=== PATIENT | female | born 1955 | race Caucasian/White ===

== ENCOUNTER → 2021-02-08 12:01 | Outpatient (CLI) | payer MEDICARE, OTHER, SELFPAY ==
--- NOTE | 2021-02-08 12:09 | DI.RAD.S_ITS ---
PROCEDURE: XR SHOULDER RT MIN 2V INDICATIONS: Right shoulder pain TECHNIQUE: 3 views of the shoulder were acquired. COMPARISON: None. FINDINGS: Bones: No fractures or dislocations. No suspicious bony lesions. AC joint hypertrophy with a prominent downgoing component. Mild glenohumeral joint degenerative arthritis. Visualized ribs appear intact. Soft tissues: No suspicious soft tissue calcifications. IMPRESSION: AC joint hypertrophy with a prominent downward going component. Mild glenohumeral joint degenerative arthritis. No evidence acute bony abnormality of the right shoulder. If clinical suspicion and/or symptoms persist, further assessment with repeat plain films, or advanced imaging (e.g., CT, MRI, or bone scan) may be helpful for further assessment. Dictated by: Toni Mehta M.D. on 02/08/2021 at 14:06 Approved by: Toni Mehta M.D. on 02/08/2021 at 14:07
--- NOTE | 2021-02-08 12:09 | DI.RAD.S_ITS ---
PROCEDURE: XR KNEE LT 3V INDICATIONS: Left knee pain TECHNIQUE: 3 views of the knee were acquired. COMPARISON: None. FINDINGS: Bones: No acute fractures or dislocations. No suspicious bony lesions. There is severe joint space narrowing of the medial femorotibial compartment with subchondral sclerosis and marginal osteophyte formation. Moderate joint space narrowing is seen in the lateral compartment and the anterior compartment joint space is maintained. Tricompartmental marginal osteophytes are present. Soft tissues: Moderate joint effusion. No suspicious soft tissue calcifications. 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 Moderate joint effusion. Dictated by: Donell Evans M.D. on 02/08/2021 at 14:34 Approved by: Donell Evans M.D. on 02/08/2021 at 14:35
[2021-02-08 14:15] LABS: BUN Creatinine Ratio 28.2 (6-22); Blood Urea Nitrogen 22 mg/dL (7-17); Calcium 9.9 mg/dL (8.4-10.2); Carbon Dioxide 27 mmol/L (22-32); Chloride 94 mmol/L (98-107); Cholesterol 276 mg/dL (140-199); Estimated Glomerular Filt Rate > 60.0 mL/min (>60); Glucose 66 mg/dL (80-110); HDL Cholesterol 69 mg/dL (40-60); HEMOLYSIS < 15 (0-50); LDL Cholesterol Calculated 194 mg/dL (<100); Potassium 4.2 mmol/L (3.4-5.1); Sodium 129 mmol/L (137-145); Triglycerides 67 mg/dL (35-150)
== END ==
PROVIDERS: PCP Student in an Organized Health Care Education/Training Program; Referring Provider Student in an Organized Health Care Education/Training Program; Visit Provider Student in an Organized Health Care Education/Training Program
DX: M25.511 Pain in right shoulder (principal); M19.011 Primary osteoarthritis, right shoulder; M25.562 Pain in left knee; M17.12 Unilateral primary osteoarthritis, left knee; M25.462 Effusion, left knee; I10 Essential (primary) hypertension; Z13.220 Encounter for screening for lipoid disorders
CPT/HCPCS: 36415; 73030; 73562; 80048; 80061

== ENCOUNTER → 2021-02-13 11:32 | Outpatient (CLI) | payer MEDICARE, OTHER, SELFPAY | PROVIDERS: PCP Student in an Organized Health Care Education/Training Program; Referring Provider Student in an Organized Health Care Education/Training Program; Visit Provider Student in an Organized Health Care Education/Training Program | DX: Z78.0 Asymptomatic menopausal state (principal); Z90.722 Acquired absence of ovaries, bilateral | CPT/HCPCS: 77080; 77081 ==

== ENCOUNTER → 2021-03-29 13:02 | Outpatient (CLI) | payer MEDICARE, OTHER, SELFPAY ==
[2021-03-29 14:04] LABS: Add Manual Diff / Slide Review NO; Basophils Absolute Auto 0 /uL (0-100); Basophils Percent Auto 1.2 % (0-2); Eosinophils Absolute Auto 100 /uL (0-450); Eosinophils Percent Auto 2.8 % (2-4); Hematocrit 39.9 % (36-46); Hemoglobin 13.3 g/dL (12.0-16.0); Lymphocytes Absolute Auto 1400 /uL (1100-4500); Lymphocytes Percent Auto 34.3 % (25-40); Mean Corpuscular HGB Conc 33.5 % (30-36); Mean Corpuscular Volume 95.6 fL (80-100); Monocytes Absolute Auto 300 /uL (0-900); Monocytes Percent Auto 6.7 % (3-14); Neutrophils Absolute Auto 2200 /uL (1500-7000); Platelet Count 343 X10^3/uL (150-400); Red Blood Cell Count 4.17 X10^6/uL (4.0-5.2); Red Cell Distribution Width 13.6 % (11.6-14.8)
[2021-03-29 14:05] LABS: Appearance Urine UA CLEAR; Bilirubin Urine UA NEGATIVE (NEGATIVE); Color Urine UA YELLOW; Glucose Urine UA NEGATIVE (Negative); Ketones Urine UA NEGATIVE (NEGATIVE); Leukocyte Esterase Urine UA NEGATIVE (NEGATIVE); Nitrite Urine UA NEGATIVE (Negative); Occult Blood Urine UA NEGATIVE (Negative); Protein Urine UA NEGATIVE (Negative); Urobilinogen Urine UA 0.2 E.U./dL (0.2)
[2021-03-29 14:14] LABS: Hemoglobin A1C% w Est Avg Glu 4.8 % (4.0-6.0)
[2021-03-29 14:24] LABS: BUN Creatinine Ratio 28.1 (6-22); Blood Urea Nitrogen 25 mg/dL (7-17); Calcium 9.6 mg/dL (8.4-10.2); Carbon Dioxide 30 mmol/L (22-32); Chloride 94 mmol/L (98-107); Estimated Glomerular Filt Rate > 60.0 mL/min (>60); Glucose 80 mg/dL (80-110); HEMOLYSIS < 15 (0-50); Potassium 4.5 mmol/L (3.4-5.1); Sodium 129 mmol/L (137-145)
[2021-03-29 14:37] LABS: Bacteria Urine None Seen; Culture Indicated Urine Cult Not Indicated; RBC Urine 0-1/HPF (0-5/HPF); Squamous Epithelial Cell Urine 0-1 /HPF (0-5/HPF); WBC Urine 0-1/HPF (0-5/HPF)
== END ==
PROVIDERS: PCP Student in an Organized Health Care Education/Training Program; Referring Provider Orthopaedic Surgery; Visit Provider Orthopaedic Surgery
DX: R73.9 Hyperglycemia, unspecified (principal); Z01.818 Encounter for other preprocedural examination; Z01.812 Encounter for preprocedural laboratory examination; N39.0 Urinary tract infection, site not specified
CPT/HCPCS: 36415; 80048; 81001; 83036; 85025; 93005; 93010

== ENCOUNTER → 2021-04-03 17:32 | Outpatient (CLI) | payer MEDICARE, OTHER, SELFPAY ==
--- NOTE | 2021-04-03 17:34 | DI.MG.S_ITS ---
BILATERAL DIGITAL SCREENING MAMMOGRAM 3D/2D WITH CAD: 04/03/2021 Comparison is made to exams dated: 04/01/2019 mammogram, 07/03/2017 mammogram, and 09/12/2015 mammogram - outside. The tissue of both breasts is predominantly fatty. Current study was also evaluated with a Computer Aided Detection (CAD) system. There are benign calcifications in both breasts. No significant masses, calcifications, or other findings are seen in either breast. There has been no significant interval change. IMPRESSION: BENIGN There is no mammographic evidence of malignancy. A 1 year screening mammogram is recommended. This exam was interpreted at Station ID: [id number]. NOTE: For mammograms, a report in lay terms will be sent to the patient. Approximately 15% of breast malignancies will not be visualized mammographically. In the management of a palpable breast mass, a negative mammogram must not discourage biopsy of a clinically suspicious lesion. Electronically Signed By: Brennon Elizabeth acr/kath:04/04/2021 08:19:21 letter sent: Normal Exam ACR BI-RADS Category 2: Benign Finding(s) 3342F
== END ==
PROVIDERS: PCP Student in an Organized Health Care Education/Training Program; Referring Provider Student in an Organized Health Care Education/Training Program; Visit Provider Student in an Organized Health Care Education/Training Program
DX: Z12.31 Encounter for screening mammogram for malignant neoplasm of breast (principal)
CPT/HCPCS: 77063; 77067

== ENCOUNTER → 2021-05-02 10:19 | Outpatient (CLI) | payer MEDICARE, OTHER, SELFPAY ==
[2021-05-02 14:14] LABS: COVID19 -Nasal RAPID Negative (Negative)
== END ==
PROVIDERS: PCP Student in an Organized Health Care Education/Training Program; Visit Provider Surgery
DX: Z01.812 Encounter for preprocedural laboratory examination (principal); Z20.822 Contact with and (suspected) exposure to COVID-19
CPT/HCPCS: 87635; C9803

== ENCOUNTER 2021-05-03 06:36 | Day surgery (SDC) | payer MEDICARE, OTHER, SELFPAY ==
[2021-05-03 07:06] VITALS: BP 92/68; PULSE 86; RESP 14; TEMP 36.7; O2SAT 100; BMI 30.7
--- NOTE | 2021-05-03 08:48 | PM.PREOP ---
Pre-operative Note COVID-19 COVID-19 status: Negative Interval Note History & Physical reviewed/Exam performed by Physician: Yes Changes to H&P: No ASA Class (for procedural sedation): II
--- NOTE | 2021-05-03 08:55 | PM.HP.1 ---
History of Present Illness History of Present Illness Date Patient Seen: 05/03/21 Chief complaint: SDC Narrative: The patient is a 66 year old woman who is due for colonoscopy for colon cancer screening. She has no specific complaints. She had no problems with the prep. Patient History Medical History (Updated 05/03/21 @ 08:58 by Jere Ruiz MD) Allergies Ankle pain (~2011) Chicken pox (~1957) Fractures (~2007) Measles Mumps Osteoarthritis Sleep apnea (~1999) Surgical History (Updated 04/18/21 @ 20:45 by Ita Pascual) Anesthesia History of ankle surgery (~2014) History of cholecystectomy (~2006) History of foot surgery (~2007) History of hernia repair (~2011) History of hysterectomy (~2006) History of left hip replacement (~2016) History of right hip replacement (~2019) Family & Social History Family History (Updated 04/18/21 @ 20:48 by Ita Pascual) Father Prostate cancer History of heart disease Mother Cancer Hypertension Bleeding ulcer Grandfather Stroke Grandfather Cirrhosis Grandmother History of heart disease Social History: household members spouse Tobacco & Substance use: Smoking Status Never smoker alcohol intake current alcohol intake frequency a few times a month Substance Use Type does not use Meds Home Medications and Allergies Home Medications Medication Instructions Recorded Confirmed Type lisinopril 40 mg tablet 40 mg PO DAILY #90 tab 02/08/21 04/19/21 Rx triamterene 75 1 tab PO DAILY #90 tab 02/08/21 05/03/21 Rx mg-hydrochlorothiazide 50 mg tablet valacyclovir 1 gram tablet 1,000 mg PO DAILY tab 02/08/21 05/03/21 History Allergies Allergy/AdvReac Type Severity Reaction Status Date / Time No Known Drug Allergies Allergy Verified 05/03/21 07:13 Exam Vital Signs (past 8 hours): - 05/03/21 07:06 Temperature 98.1 F Pulse Rate 86 Respiratory Rate 14 Blood Pressure 92/68 Pulse Oximetry 100 Oxygen Delivery Method Room Air Narrative Exam Narrative: No acute distress Abdomen soft, nontender Neuro General: patient alert, patient awake and patient oriented x3 Assessment & Plan Assessment and plan (1) Colon cancer screening: Status: Acute Plan: Risks and benefits of colonoscopy reviewed. She would like to proceed. Time Spent With Patient Critical Care time: I spent a total of [] minutes of critical care time on this patient's care today; this time is exclusive of procedural time.
[2021-05-03] MEDS: MIDAZOLAM 5 MG/5 ML VIAL IV (09:11)
[2021-05-03] MEDS: fentaNYL 250 MCG/5 ML INJ IV (09:16)
[2021-05-03 09:33] VITALS: BP 90/56; PULSE 86; RESP 15; TEMP 36; O2SAT 99
--- NOTE | 2021-05-03 09:34 | PM.OP.COLON ---
Operative Date/Time/Diagnoses Date of procedure: 05/03/21 Pre-op diagnosis: Colon cancer screening Post-op diagnosis: same Procedure & Clinicians Surgeon: Jere Ruiz Procedure Notes SCOAP/Timeout: Performed Procedure in detail: Impression: The patient was brought to the endoscopy suite, placed in left lateral decubitus position. The patient was connected to monitoring devices. A time-out was performed. Sedation was administered. Once the patient was adequately sedated, a digital rectal exam was performed and was normal. The scope was then inserted and advanced to the cecum where the appendiceal orifice was identified and photographed. The scope was then slowly withdrawn over greater than 6 minutes. Mucosa was thoroughly inspected. There were no polyps or masses noted. There were scattered diverticula mostly in the sigmoid colon. The scope was retroflexed in the rectum. There were no abnormalities noted. The was straightened and removed. The patient was awakened and brought to recovery. EBL: 0 The she will be instructed to repeat her colon cancer screening colonoscopy at 10 years. Scope withdrawal time: 10 minutes Sedation minutes: 27 Findings: divertiulosis Specimen(s): none sent Complications: none Post-procedure Recommendations: Colonoscopy in 10 years and High fiber diet Follow up: as needed Disposition: PACU
[2021-05-03 09:38] VITALS: BP 90/62; PULSE 81; RESP 15; O2SAT 98
[2021-05-03 09:43] VITALS: BP 104/59; PULSE 76; RESP 21; O2SAT 100
[2021-05-03 09:48] VITALS: BP 90/49; PULSE 75; RESP 15; TEMP 36; O2SAT 100
[2021-05-03 09:54] VITALS: BP 98/61; PULSE 65; RESP 12; TEMP 35.9; O2SAT 100
== END 2021-05-03 10:05 | disposition home or self-care (01) ==
PROVIDERS: PCP Student in an Organized Health Care Education/Training Program; Referring Provider Surgery; Visit Provider Surgery
PROC: 0DJD8ZZ Inspection of Lower Intestinal Tract, Via Natural or Artificial Opening Endoscopic (ICD-10-PCS; CPT 45378; principal; 2021-05-03 07:45)
DX: Z12.11 Encounter for screening for malignant neoplasm of colon (principal); K57.30 Diverticulosis of large intestine without perforation or abscess without bleeding
CPT/HCPCS: G0121; 99152; 99153; J2250; J3010

== ENCOUNTER → 2022-05-27 16:07 | Outpatient (CLI) | payer MEDICARE, OTHER, SELFPAY ==
[2022-05-27 17:00] LABS: BUN Creatinine Ratio 31.9 (6-22); Blood Urea Nitrogen 29 mg/dL (7-17); Carbon Dioxide 27 mmol/L (22-32); Chloride 94 mmol/L (98-107); Cholesterol 243 mg/dL (140-199); Estimated Glomerular Filt Rate > 60 mL/min (>60); Glucose 107 mg/dL (80-110); HDL Cholesterol 51 mg/dL (40-60); HEMOLYSIS 16 (0-50); LDL Cholesterol Calculated 152 mg/dL (<100); Potassium 3.9 mmol/L (3.4-5.1); Sodium 130 mmol/L (137-145); Triglycerides 200 mg/dL (35-150)
== END ==
PROVIDERS: PCP Student in an Organized Health Care Education/Training Program; Referring Provider Student in an Organized Health Care Education/Training Program; Visit Provider Student in an Organized Health Care Education/Training Program
DX: E78.2 Mixed hyperlipidemia (principal); I10 Essential (primary) hypertension
CPT/HCPCS: 36415; 80048; 80061

== ENCOUNTER → 2023-07-30 10:33 | Outpatient (CLI) | payer MEDICARE, OTHER, SELFPAY ==
[2023-07-30 11:42] LABS: Urine Volume 10mL (spun)
[2023-07-30 11:58] LABS: Add Manual Diff / Slide Review NO; Basophils Absolute Auto 0 /uL (0-100); Basophils Percent Auto 0.8 % (0-2); Eosinophils Absolute Auto 0 /uL (0-450); Eosinophils Percent Auto 0.7 % (2-4); Hematocrit 37.4 % (36-46); Hemoglobin 12.8 g/dL (12.0-16.0); Lymphocytes Absolute Auto 800 /uL (1100-4500); Mean Corpuscular HGB Conc 34.4 % (30-36); Mean Corpuscular Volume 93.2 fL (80-100); Monocytes Absolute Auto 300 /uL (0-900); Monocytes Percent Auto 7.2 % (3-14); Neutrophils Absolute Auto 2800 /uL (1500-7000); Neutrophils Percent Auto 70.3 % (50-75); Platelet Count 340 X10^3/uL (150-400); Red Blood Cell Count 4.01 X10^6/uL (4.0-5.2); Red Cell Distribution Width 14.1 % (11.6-14.8); White Blood Cell Count 3.9 X10^3/uL (4.5-11.0)
[2023-07-30 12:07] LABS: Appearance Urine UA CLEAR; Bilirubin Urine UA NEGATIVE (NEGATIVE); Color Urine UA YELLOW; Glucose Urine UA NEGATIVE (Negative); Ketones Urine UA 1+ (NEGATIVE); Leukocyte Esterase Urine UA NEGATIVE (NEGATIVE); Nitrite Urine UA NEGATIVE (Negative); Occult Blood Urine UA NEGATIVE (Negative); Protein Urine UA NEGATIVE (Negative); Urobilinogen Urine UA 0.2 E.U./dL (0.2)
[2023-07-30 12:17] LABS: Alanine Aminotransferase 57 IU/L (<35); Albumin 4.3 g/dL (3.5-5.0); Albumin Globulin Ratio 1.4 (1.0-2.8); Alkaline Phosphatase 74 U/L (38-126); Aspartate Aminotransferase 44 IU/L (14-36); BUN Creatinine Ratio 28.6 (6-22); Bilirubin Total 0.6 mg/dL (0.2-1.3); Blood Urea Nitrogen 24 mg/dL (7-17); Carbon Dioxide 24 mmol/L (22-32); Chloride 92 mmol/L (98-107); Cholesterol 259 mg/dL (140-199); Estimated Glomerular Filt Rate > 60 mL/min (>60); Globulin 3.1 g/dL (1.7-4.1); Glucose 87 mg/dL (80-110); HDL Cholesterol 52 mg/dL (40-60); HEMOLYSIS < 15 (0-50); LDL Cholesterol Calculated 189 mg/dL (<100); Potassium 4.3 mmol/L (3.4-5.1); Sodium 128 mmol/L (137-145); Total Protein 7.4 g/dL (6.3-8.2); Triglycerides 90 mg/dL (35-150)
[2023-07-30 12:22] LABS: Creatinine Urine Random 43.3 mg/dL
[2023-07-30 12:24] LABS: Hemoglobin A1C% w Est Avg Glu 4.9 % (4.0-6.0)
[2023-07-30 12:29] LABS: Microalbumin Urine Random < 0.6 mg/dL (0-1.6)
[2023-07-30 12:44] LABS: Free T3, Triiodothyronine Free 2.83 pg/mL (2.77-5.27); Free T4, Direct Thyroxine 1.58 ng/dL (0.78-2.19)
[2023-07-30 12:57] LABS: Thyroid Stimulating Hormone 0.342 uIU/mL (0.47-4.68)
[2023-07-30 18:41] LABS: Bacteria Urine None Seen; Culture Indicated Urine Cult Not Indicated; RBC Urine None Seen (0-5/HPF); Squamous Epithelial Cell Urine 0-1 /HPF (0-5/HPF); WBC Urine None Seen (0-5/HPF)
[2023-07-31 17:43] LABS: Hep C Virus Ab w/Reflex Quant NEGATIVE s/c (NEGATIVE)
== END ==
PROVIDERS: PCP Nurse Practitioner; Referring Provider Orthopaedic Surgery; Visit Provider Orthopaedic Surgery
DX: I10 Essential (primary) hypertension (principal); R73.9 Hyperglycemia, unspecified; Z01.818 Encounter for other preprocedural examination; Z11.59 Encounter for screening for other viral diseases; E78.2 Mixed hyperlipidemia; Z01.812 Encounter for preprocedural laboratory examination
CPT/HCPCS: 36415; 80053; 80061; 81001; 82043; 82570; 83036; 84439; 84443; 84481; 85025; 86803; 93005

== ENCOUNTER → 2023-09-03 13:52 | Outpatient (CLI) | payer MEDICARE, OTHER, SELFPAY ==
--- NOTE | 2023-09-03 13:52 | DI.MG.S_ITS ---
BILATERAL DIGITAL SCREENING MAMMOGRAM 3D/2D WITH CAD: 09/03/2023 CLINICAL: Routine screening. Comparison is made to exams dated: 04/03/2021 mammogram - [facility], 04/01/2019 mammogram, and 07/03/2017 mammogram - outside. Both breasts are heterogeneously dense, which may obscure small masses (category c / 51-75% glandular tissue). Current study was also evaluated with a Computer Aided Detection (CAD) system. There are benign calcifications in both breasts. No significant masses, calcifications, or other findings are seen in either breast. There has been no significant interval change. IMPRESSION: BENIGN There is no mammographic evidence of malignancy. A 1 year screening mammogram is recommended. Based on the Tyrer Cuzick model (a risk assessment model) the patient's lifetime risk is 8.3% and her 10 year risk is 4.9%. According to the ACR, ACS, and NCCN guidelines, an annual breast MRI exam along with mammogram is recommended if the patient's lifetime risk is 20% or greater. This exam was interpreted at Station ID: [id number]. NOTE: For mammograms, a report in lay terms will be sent to the patient. Approximately 15% of breast malignancies will not be visualized mammographically. In the management of a palpable breast mass, a negative mammogram must not discourage biopsy of a clinically suspicious lesion. Electronically Signed By: Nelly aquino/kath:09/03/2023 15:26:41 letter sent: Normal Exam ACR BI-RADS Category 2: Benign Finding(s) 3342F
== END ==
PROVIDERS: PCP Nurse Practitioner; Referring Provider Nurse Practitioner; Visit Provider Nurse Practitioner
DX: Z12.31 Encounter for screening mammogram for malignant neoplasm of breast (principal); R92.333 Mammographic heterogeneous density, bilateral breasts
CPT/HCPCS: 77063; 77067

== ENCOUNTER → 2024-04-16 14:01 | Outpatient (CLI) | payer MEDICARE, OTHER, SELFPAY ==
[2024-04-16 17:06] LABS: Cholesterol 143 mg/dL (140-199); HDL Cholesterol 60 mg/dL (40-60); LDL Cholesterol Calculated 59 mg/dL (<100); Triglycerides 119 mg/dL (35-150)
== END ==
PROVIDERS: PCP Nurse Practitioner Family; Referring Provider Nurse Practitioner Family; Visit Provider Nurse Practitioner Family
DX: E78.5 Hyperlipidemia, unspecified (principal)
CPT/HCPCS: 80061

== ENCOUNTER → 2024-07-13 14:22 | Outpatient (CLI) | payer MEDICARE, OTHER, SELFPAY | PROVIDERS: PCP Nurse Practitioner Family; Visit Provider Physician Assistant Surgical | DX: R30.0 Dysuria (principal) | CPT/HCPCS: 87077; 87086 ==

== ENCOUNTER → 2024-08-13 12:37 | Outpatient (CLI) | payer MEDICARE, OTHER, SELFPAY | PROVIDERS: PCP Nurse Practitioner Family; Visit Provider Nurse Practitioner Family | DX: R30.0 Dysuria (principal) | CPT/HCPCS: 87086 ==

== ENCOUNTER → 2024-08-17 10:52 | Outpatient (CLI) | payer MEDICARE, OTHER, SELFPAY ==
[2024-08-17 11:35] LABS: Add Manual Diff / Slide Review NO; Basophils Absolute Auto 100 /uL (0-100); Basophils Percent Auto 1.6 % (0-2); Eosinophils Absolute Auto 100 /uL (0-450); Eosinophils Percent Auto 4.1 % (2-4); Hematocrit 43.2 % (36-46); Hemoglobin 14.6 g/dL (12.0-16.0); Lymphocytes Absolute Auto 800 /uL (1100-4500); Lymphocytes Percent Auto 22.6 % (25-40); Mean Corpuscular HGB Conc 33.7 % (30-36); Mean Corpuscular Hemoglobin 32.5 PG (26-34); Mean Corpuscular Volume 96.4 fL (80-100); Monocytes Absolute Auto 300 /uL (0-900); Monocytes Percent Auto 8.3 % (3-14); Neutrophils Absolute Auto 2200 /uL (1500-7000); Neutrophils Percent Auto 63.4 % (50-75); Platelet Count 413 X10^3/uL (150-400); Red Blood Cell Count 4.48 X10^6/uL (4.0-5.2); Red Cell Distribution Width 13.7 % (11.6-14.8); White Blood Cell Count 3.4 X10^3/uL (4.5-11.0)
[2024-08-17 11:57] LABS: Alanine Aminotransferase 193 IU/L (<35); Albumin 4.5 g/dL (3.5-5.0); Albumin Globulin Ratio 1.5 (1.0-2.8); Alkaline Phosphatase 90 U/L (38-126); Aspartate Aminotransferase 127 IU/L (14-36); BUN Creatinine Ratio 21.4 (6-22); Bilirubin Total 0.8 mg/dL (0.2-1.3); Blood Urea Nitrogen 18 mg/dL (7-17); Calcium 9.7 mg/dL (8.4-10.2); Carbon Dioxide 25 mmol/L (22-32); Chloride 97 mmol/L (98-107); Cholesterol 175 mg/dL (140-199); Estimated Glomerular Filt Rate > 60 mL/min (>60); Globulin 3.1 g/dL (1.7-4.1); Glucose 86 mg/dL (80-110); HDL Cholesterol 50 mg/dL (40-60); HEMOLYSIS < 15 (0-50); LDL Cholesterol Calculated 108 mg/dL (<100); Sodium 130 mmol/L (137-145); Total Protein 7.6 g/dL (6.3-8.2); Triglycerides 85 mg/dL (35-150)
== END ==
PROVIDERS: PCP Nurse Practitioner Family; Referring Provider Nurse Practitioner Family; Visit Provider Nurse Practitioner Family
DX: I10 Essential (primary) hypertension (principal); R31.9 Hematuria, unspecified; E78.2 Mixed hyperlipidemia; E03.9 Hypothyroidism, unspecified
CPT/HCPCS: 36415; 80053; 80061; 84443; 85025

== ENCOUNTER → 2024-08-27 12:41 | Outpatient (CLI) | payer MEDICARE, OTHER, SELFPAY ==
[2024-08-27 13:25] LABS: Appearance Urine UA CLEAR; Bilirubin Urine UA NEGATIVE (NEGATIVE); Color Urine UA YELLOW; Glucose Urine UA NEGATIVE (Negative); Ketones Urine UA NEGATIVE (NEGATIVE); Leukocyte Esterase Urine UA NEGATIVE (NEGATIVE); Nitrite Urine UA NEGATIVE (Negative); Occult Blood Urine UA NEGATIVE (Negative); Protein Urine UA NEGATIVE (Negative); Urobilinogen Urine UA 0.2 E.U./dL (0.2)
[2024-08-27 13:36] LABS: Creatinine Urine Random 97.09 mg/dL
[2024-08-27 13:43] LABS: Microalbumin Urine Random 0.7 mg/dL (0-1.6)
== END ==
PROVIDERS: PCP Nurse Practitioner Family; Referring Provider Nurse Practitioner Family; Visit Provider Nurse Practitioner Family
DX: I10 Essential (primary) hypertension (principal); R31.9 Hematuria, unspecified; E78.2 Mixed hyperlipidemia; E03.9 Hypothyroidism, unspecified; N39.0 Urinary tract infection, site not specified
CPT/HCPCS: 81003; 82043; 82570

== ENCOUNTER 2025-04-11 17:18 | Emergency (ER) | payer MEDICARE, OTHER, SELFPAY ==
[2025-04-11] VITALS (31 sets, daily range): BP systolic 91–132; BP diastolic 51–76; PULSE 75–91; RESP 16–34; TEMP 36.6–36.9; O2SAT 92–100; BMI 25.7
--- NOTE | 2025-04-11 | DI.RAD.S_ITS ---
PROCEDURE: XR HIP LT 1V INDICATIONS: POST REDUCTION TECHNIQUE: 1 views of the hip were acquired. COMPARISON: [facility], CR, XR HIP W PEL LT 2V, 04/11/2025, 17:50. FINDINGS: See impression IMPRESSION: Interval reduction of the left total hip arthroplasty. No periprosthetic fracture. Dictated by: Alexis Gaxiola M.D. on 04/11/2025 at 20:42 Approved by: Alexis Gaxiola M.D. on 04/11/2025 at 20:43
--- NOTE | 2025-04-11 17:24 | DI.RAD.S_ITS ---
PROCEDURE: XR HIP W PEL IF DONE LT 2V INDICATIONS: left hip popped out, fell to ground. Hx of replacement TECHNIQUE: AP pelvis with lateral view(s) of the left hip(s). COMPARISON: None. FINDINGS: Bones: There is bilateral total hip arthroplasty. There is superior and slightly anterior dislocation of the left femoral component. There is moderate osteopenia. No definite focal osseous lesion. Soft tissues: The visualized bowel gas pattern is normal. No suspicious soft tissue calcifications. IMPRESSION: Dislocation of the femoral component of left total hip arthroplasty. Dictated by: Brayan Novak M.D. on 04/11/2025 at 18:36 Approved by: Brayan Novak M.D. on 04/11/2025 at 18:38
--- NOTE | 2025-04-11 17:29 | ED.LOWEXIN ---
HPI - Extremity Injury (Lower) General Chief Complaint: Extremity Injury, Lower Stated Complaint: Left hip dislocation Time Seen by Provider: 04/11/25 17:29 Source: EMS Mode of arrival: EMS History of Present Illness HPI Narrative: 69-year-old female history of hypertension, dyslipidemia, obesity, HSV, had hip surgery 2018 presents with hip dislocation via EMS after reaching for something on top of the shelf and felt a pull unable to bear weight and fell down but no no loss of conscious. Patient denies chest pain, dizziness, back pain, neck pain, numbness, tingling, down the legs, bowel or bladder incontinence, shortness of breath. Other than what is stated 14 point review of system is negative. Related Data Previous Rx's ?Medication ?Instructions ?Recorded triamcinolone acetonide 0.025 % 1 applic topical BID #15 grams 04/22/24 topical ointment amoxicillin 500 mg-potassium 1 tab PO BID #14 tabs 08/13/24 clavulanate 125 mg tablet (Augmentin) phenazopyridine 200 mg tablet 200 mg PO TID PRN pain #6 tabs 08/13/24 (Pyridium) amlodipine 10 mg tablet 10 mg PO DAILY #90 tabs 03/09/25 estradiol 10 mcg vaginal tablet See Rx Instructions .Route 03/09/25 (Vagifem) .COMPLEX #36 tabs olmesartan 40 mg tablet 40 mg PO DAILY #90 tabs 03/09/25 rosuvastatin 10 mg tablet 10 mg PO DAILY #90 tabs 03/09/25 tirzepatide (weight loss) 12.5 12.5 mg (0.5 mL) SUBCUT QWEEK #2 mL 03/09/25 mg/0.5 mL subcutaneous pen injector triamterene 37.5 1 cap PO DAILY #90 caps 03/09/25 mg-hydrochlorothiazide 25 mg capsule valacyclovir 1 gram tablet 1,000 mg PO DAILY #90 tabs 03/09/25 hydrocodone 5 mg-acetaminophen 325 1 tab PO Q4-6H PRN pain #20 tabs 04/11/25 mg tablet Allergies Allergy/AdvReac Type Severity Reaction Status Date / Time No Known Drug Allergies Allergy Verified 04/11/25 17:24 Review of Systems Review of Systems ROS Unobtainable: All systems reviewed & are unremarkable except as noted in HPI and below Patient History Medical History Dyspareunia Elevated coronary artery calcium score HLD (hyperlipidemia) Class 2 obesity Environmental and seasonal allergies Osteoarthritis Sleep apnea (~1999) Fractures (~2007) Ankle pain (~2011) Mumps Measles Chicken pox (~1957) Retinal vein occlusion (~2020) Surgical History History of arthroplasty of left knee Anesthesia History of hernia repair (~2011) History of right hip replacement (~2019) History of left hip replacement (~2016) History of ankle surgery (~2014) History of hysterectomy (~2006) History of cholecystectomy (~2006) History of foot surgery (~2007) Family History Father Prostate cancer History of heart disease Mother Cancer Hypertension Bleeding ulcer Grandfather Stroke Grandfather Cirrhosis Grandmother History of heart disease Social History household members: spouse alcohol intake: current alcohol intake frequency: a few times a month Exam Narrative Exam Narrative: GENERAL: [69] year old patient appears stated age. Well-developed patient, in mild distress. HEAD: Atraumatic. Normocephalic. EYES: Pupils equal round and reactive. Extraocular motions intact. No scleral icterus. No injection or drainage. ENT: Nose without bleeding, purulent drainage. Throat without erythema, tonsillar hypertrophy or exudate. Airway patent. NECK: Trachea midline. Non tender CARDIOVASCULAR: Regular rate and rhythm without murmurs, gallops, or rubs. RESPIRATORY: Clear to auscultation. Breath sounds equal bilaterally. No wheezes, rales, or rhonchi. GASTROINTESTINAL: Abdomen soft, non-tender, nondistended. EXTREMITIES: No edema or joint tenderness. BACK: Nontender without deformity or crepitance. No flank tenderness. NEURO: AOx3. SKIN: No rash or erythema of visible areas Initial Vital Signs Initial Vital Signs: Vital Signs Pulse Rate 88 04/11/25 17:21 Respiratory Rate 16 04/11/25 17:21 Blood Pressure 111/64 04/11/25 17:21 Pulse Oximetry 98 04/11/25 17:21 Oxygen Delivery Method Room Air 04/11/25 17:21 Course Orders Ordered: ED Orders 04/11/25 17:24 XR hip w pel LT 2V Stat 04/11/25 20:38 CT pelvis wo con Stat Discontinued Medications Hydromorphone HCl (Hydromorphone 1 Mg/Ml Syringe) 1 mg IV NOW ONE Stop: 04/11/25 17:38 Last Admin: 04/11/25 17:44 Dose: 1 mg Documented By: COLLETTE Ketorolac Tromethamine (Ketorolac 30 Mg/Ml Vial) 15 mg IV NOW ONE Stop: 04/11/25 17:38 Last Admin: 04/11/25 17:43 Dose: 15 mg Documented By: COLLETTE Ondansetron HCl (Ondansetron 4 Mg/2 Ml Inj) 4 mg IV NOW ONE Stop: 04/11/25 17:38 Last Admin: 04/11/25 17:43 Dose: 4 mg Documented By: COLLETTE Propofol (Propofol 200 Mg/20 Ml Vial) 100 mg IV NOW ONE Stop: 04/11/25 19:05 Last Admin: 04/11/25 19:56 Dose: Not Given Propofol (Propofol 200 Mg/20 Ml Vial) 150 mg IV NOW ONE Stop: 04/11/25 19:24 Last Admin: 04/11/25 19:23 Dose: 150 mg Propofol (Propofol 200 Mg/20 Ml Vial) 100 mg IV NOW ONE Stop: 04/11/25 19:52 Last Admin: 04/11/25 20:44 Dose: Not Given Propofol (Propofol 200 Mg/20 Ml Vial) 80 mg IV NOW ONE Stop: 04/11/25 20:42 Last Admin: 04/11/25 20:13 Dose: 80 mg Vital Signs Vital signs: Vital Signs - 8 hr 04/11/25 17:21 04/11/25 17:32 04/11/25 18:00 Temperature Pulse Rate 88 87 Respiratory Rate 16 25 H Blood Pressure 111/64 106/64 Pulse Oximetry 98 100 Oxygen Delivery Method Room Air 04/11/25 18:00 04/11/25 18:21 04/11/25 18:21 Temperature Pulse Rate 82 85 Respiratory Rate 24 23 Blood Pressure 119/61 Pulse Oximetry 100 100 Oxygen Delivery Method 04/11/25 18:30 04/11/25 18:30 04/11/25 19:00 Temperature Pulse Rate 81 75 Respiratory Rate 20 20 Blood Pressure 115/68 Pulse Oximetry 99 100 Oxygen Delivery Method 04/11/25 19:00 04/11/25 19:14 04/11/25 19:19 Temperature 98.5 F Pulse Rate 78 77 Respiratory Rate 16 23 Blood Pressure 109/58 L 109/58 L Pulse Oximetry 100 99 Oxygen Delivery Method 04/11/25 19:19 04/11/25 19:20 04/11/25 19:20 Temperature Pulse Rate 79 Respiratory Rate 34 H Blood Pressure 93/55 L 97/55 L Pulse Oximetry 99 Oxygen Delivery Method 04/11/25 19:21 04/11/25 19:21 04/11/25 19:25 Temperature Pulse Rate 81 81 Respiratory Rate 26 H Blood Pressure 109/53 L Pulse Oximetry 99 96 Oxygen Delivery Method 04/11/25 19:25 04/11/25 19:30 04/11/25 19:30 Temperature Pulse Rate 84 Respiratory Rate 21 Blood Pressure 119/76 118/55 L Pulse Oximetry 95 Oxygen Delivery Method 04/11/25 19:35 04/11/25 19:35 04/11/25 19:38 Temperature 98 F Pulse Rate 78 78 Respiratory Rate 17 16 Blood Pressure 91/54 L 95/52 L Pulse Oximetry 95 98 Oxygen Delivery Method 04/11/25 19:39 04/11/25 19:40 04/11/25 19:40 Temperature Pulse Rate 81 81 Respiratory Rate 20 21 Blood Pressure 95/52 L Pulse Oximetry 99 Oxygen Delivery Method 04/11/25 19:45 04/11/25 19:45 04/11/25 19:50 Temperature Pulse Rate 75 75 Respiratory Rate 16 20 Blood Pressure 95/51 L Pulse Oximetry 98 99 Oxygen Delivery Method 04/11/25 19:50 04/11/25 19:55 04/11/25 19:55 Temperature Pulse Rate 78 Respiratory Rate Blood Pressure 101/57 L 105/54 L Pulse Oximetry Oxygen Delivery Method 04/11/25 20:00 04/11/25 20:01 04/11/25 20:01 Temperature Pulse Rate 81 81 Respiratory Rate 24 23 Blood Pressure 128/58 L Pulse Oximetry 92 96 Oxygen Delivery Method 04/11/25 20:05 04/11/25 20:05 04/11/25 20:11 Temperature Pulse Rate 85 85 Respiratory Rate 24 20 Blood Pressure 132/60 Pulse Oximetry 98 99 Oxygen Delivery Method 04/11/25 20:11 04/11/25 20:15 04/11/25 20:15 Temperature Pulse Rate 91 H Respiratory Rate 20 Blood Pressure 132/75 125/73 Pulse Oximetry 94 Oxygen Delivery Method 04/11/25 20:19 04/11/25 20:20 04/11/25 20:21 Temperature 98.0 F Pulse Rate 85 84 Respiratory Rate 21 16 Blood Pressure 125/73 110/54 L Pulse Oximetry 98 Oxygen Delivery Method 04/11/25 20:21 04/11/25 20:26 04/11/25 20:26 Temperature Pulse Rate 83 79 Respiratory Rate 21 22 Blood Pressure 115/53 L Pulse Oximetry 98 99 Oxygen Delivery Method 04/11/25 20:30 04/11/25 20:30 04/11/25 20:35 Temperature Pulse Rate 79 78 Respiratory Rate 23 24 Blood Pressure 105/62 Pulse Oximetry 98 99 Oxygen Delivery Method 04/11/25 20:35 04/11/25 20:40 04/11/25 20:40 Temperature Pulse Rate 77 Respiratory Rate 22 Blood Pressure 102/58 L 109/60 Pulse Oximetry 98 Oxygen Delivery Method MDM - Extremity Injury (Lower) Imaging Data Extremity x-ray #1: Radiologist's Impression: [address] [address] XRay Report Signed Patient: Natalie Pruitt MR#: [id number] : 1955 Acct:[id number] Age/Sex: 69 / F Date of Service: 04/11/25 Loc: ED Accession Number: [id number] Procedure: XR hip w pel LT 2V Ordering Provider: Percy Castellanos D.O. PROCEDURE: XR HIP W PEL IF DONE LT 2V INDICATIONS: left hip popped out, fell to ground. Hx of replacement TECHNIQUE: AP pelvis with lateral view(s) of the left hip(s). COMPARISON: None. FINDINGS: Bones: There is bilateral total hip arthroplasty. There is superior and slightly anterior dislocation of the left femoral component. There is moderate osteopenia. No definite focal osseous lesion. Soft tissues: The visualized bowel gas pattern is normal. No suspicious soft tissue calcifications. IMPRESSION: Dislocation of the femoral component of left total hip arthroplasty. CT scan - abdomen/pelvis: Radiologist's Impression: [address] [address] [address] Scan Report Signed Patient: Natalie Pruitt MR#: [id number] : 1955 Acct:[id number] Age/Sex: 69 / F Date of Service: 04/11/25 Loc: ED Accession Number: [id number] Procedure: CT pelvis wo con Ordering Provider: Percy Castellanos D.O. PROCEDURE: CT PEL WO CON INDICATIONS: Left hip dislocation TECHNIQUE: Noncontrast 3 mm axial sections acquired through the bony pelvis, with coronal and sagittal reformatting. COMPARISON: None. FINDINGS: Image quality: Excellent. Bones: Changes of bilateral total hip arthroplasties. The left femoral head is appropriately seated in the acetabular cup. No displaced liner. Moderate degenerative proliferation of the pubic symphysis. Mild joint space narrowing small peripheral osteophytosis of the bilateral sacroiliac joints. No sacral fracture. No fracture. Mild, grade 1, degenerative anterolisthesis of L4 on L5. Soft tissues: The pelvic viscera is unremarkable. Post hysterectomy. Mild diffuse atrophy and fatty infiltration of the hip girdle musculature, within the expected change for age. No focal soft tissue collection. IMPRESSION: Changes of bilateral total hip prosthesis with reduction of the left femoral component. No periprosthetic fracture. ECG Data Interpretation: NSR HR 91 GA 168 QRS [address]-t wave change MDM Narrative Medical decision making narrative: All lab work, vital signs, nurse triage note, medication list, previous ER visits, and all imaging studies reviewed. X-ray shows dislocation of the femoral component of the left total hip arthroplasty. I attempted reduce the hip reduction multiple times without any success. Dr. Eid was called in to assist and a 2nd moderate procedural sedation completed without any complication. Airway assessed prior to start of procedure? [Y] Procedural Sedation Time of Procedure: [738pm] Consent Signed: [Y] ASA Class: [II] Mallampati Airway Classification: [II] Time Out Performed: [Y] Indication: [L hip dislocation] Preparation: [Y] Bedside and IV Secured: [Y] Fentanyl Dose (mcg): [] IV Propofol Dose (mg): [See procedure sheet] ED Sedation Level: [Moderate] Patient Tolerated Procedure: [Y] Complications: [None] 2nd proceduration sedation note Airway assessed prior to start of procedure? [Y] Procedural Sedation Time of Procedure: [815pm] Consent Signed: [Y] ASA Class: [II] Mallampati Airway Classification: [II] Time Out Performed: [Y] Indication: [L hip dislocation] Preparation: [Y] Bedside and IV Secured: [Y] Fentanyl Dose (mcg): [N] IV Propofol Dose (mg): [See procedure sheet] ED Sedation Level: [Moderate] Patient Tolerated Procedure: [Y} Complications: [None] Patient will follow up with Dr. Eid as outpatient. X-rays CT scan completed today. Differential diagnosis fracture, dislocation, contusion. CT pelvis showed changes of bilateral total hip prosthesis with reduction of the left femoral component no periprosthetic fracture. X-ray showed interval reduction of the left total hip arthroplasty. No periprosthetic fracture. Discharge Plan Departure Patient Disposition: Home Clinical Impression: Dislocation, hip Qualifiers: Encounter type: initial encounter Laterality: left Qualified Code(s): S73.005A - Unspecified dislocation of left hip, initial encounter Instructions: DI for Hip Dislocation -- Adult Activity Restrictions/Additional Instructions: Return with new or worsening symptoms. Follow up with call office for appointment. ? Prescriptions: New hydrocodone-acetaminophen 5-325 mg tablet 1 tab PO Q4-6H PRN (Reason: pain) Qty: 20 0RF No Action phenazopyridine [Pyridium] 200 mg tablet 200 mg PO TID PRN (Reason: pain) Qty: 6 0RF triamcinolone acetonide 0.025 % ointment 1 applic topical BID Qty: 15 0RF amoxicillin-pot clavulanate [Augmentin] 500-125 mg tablet 1 tab PO BID Qty: 14 0RF Rx Instructions: TWICE daily triamterene-hydrochlorothiazid 37.5-25 mg capsule 1 cap PO DAILY Qty: 90 3RF tirzepatide (weight loss) 12.5 mg/0.5 mL pen injector 12.5 mg SUBCUT QWEEK Qty: 2 6RF rosuvastatin 10 mg tablet 10 mg PO DAILY Qty: 90 3RF Rx Instructions: Take 1 tab at bedtime daily, with Vitamin D3. olmesartan 40 mg tablet 40 mg PO DAILY Qty: 90 3RF Rx Instructions: Take 1 tab daily, Goal for BP under 130/80, preferably 120/80 amlodipine 10 mg tablet 10 mg PO DAILY Qty: 90 3RF estradiol [Vagifem] 10 mcg tablet See Rx Instructions .ROUTE .COMPLEX Qty: 36 3RF Rx Instructions: Insert vaginally at bedtime daily x14 days then 2x/week thereafter; valacyclovir 1 gram tablet 1,000 mg PO DAILY Qty: 90 3RF Referrals: Tatyana Holly FNP-JOANNA [Primary Care Provider, Family Practice] Roberto Eid MD [Physician, Orthopedic Surgery] Stand Alone Forms: Patient Portal/API
[2025-04-11] MEDS: KETOROLAC 30 MG/ML VIAL 15 MG IV (17:43)
[2025-04-11] MEDS: ONDANSETRON 4 MG/2 ML INJ IV (17:43)
--- NOTE | 2025-04-11 20:31 | PM.CN.IH.1 ---
History of Present Illness Consult details Narrative: CHIEF COMPLAINT I came in today because my hip dislocated. SUBJECTIVE The patient did not provide additional subjective details in the transcript. SOCIAL HISTORY No social history details were provided in the transcript. PRIOR HIP/KNEE PROCEDURES - Left total hip arthroplasty performed by Dr. Jimmie Avila in 2018, with a Corail stem. - Right total hip arthroplasty performed in [place], [place], after a fracture, with an Accolade stem. - Bilateral total knee arthroplasty performed by Dr. Garcia locally. PHYSICAL EXAM Hip Exam: - Examination: The foot was held in extension and external rotation. The patient was conversant and appropriate. - Neurologic: Intact plantar flexion and dorsiflexion of her hallux and ankle, indicative of an intact sciatic nerve. RADIOLOGY: Images independently reviewed and interpreted: 1. Left Hip ? 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 2. Long Leg Scanogram ? Views performed on 2021-03-28 - Findings: Left total hip arthroplasty with a Corail stem. Right total hip arthroplasty with an Accolade stem. Possible slight limb length discrepancy with the right longer than the left. Prior right total ankle arthroplasty. These films were before either knee replacement. ASSESSMENT The patient presents with an anterior dislocation of the left total hip arthroplasty. PLAN I discussed with the patient the need for follow-up in the clinic to monitor for any recurrent anterior hip dislocations. A CT scan will be obtained to measure the angles of her components. If the patient experiences recurrent hip dislocations, we will consider a revision arthroplasty, potentially involving the placement of a dual mobility implant. - Obtain CT scan to measure component angles. - Follow up in the outpatient setting. - Monitor for recurrent hip dislocations. - Consider revision surgery with dual mobility implant if dislocations recur. PROCEDURES See procedure note FOLLOWUP Follow up in clinic with me. This does not need to be done on an urgent basis. When she does come to clinic I would get the following images: - Low AP Pelvis with marker ball - Cross table lateral left hip - Sitting and standing lateral radiographs of the spine Meds Home Medications and Allergies Home Medications ?Medication ?Instructions ?Recorded ?Confirmed ?Type triamcinolone acetonide 0.025 % 1 applic topical BID #15 grams 04/22/24 03/09/25 Rx topical ointment amoxicillin 500 mg-potassium 1 tab PO BID #14 tabs 02/07/25 09/03/25 Rx clavulanate 125 mg tablet (Augmentin) phenazopyridine 200 mg tablet 200 mg PO TID PRN pain #6 tabs 08/13/24 03/09/25 Rx (Pyridium) amlodipine 10 mg tablet 10 mg PO DAILY #90 tabs 03/09/25 03/09/25 Rx estradiol 10 mcg vaginal tablet See Rx Instructions .Route 03/09/25 03/09/25 Rx (Vagifem) .COMPLEX #36 tabs olmesartan 40 mg tablet 40 mg PO DAILY #90 tabs 03/09/25 03/09/25 Rx rosuvastatin 10 mg tablet 10 mg PO DAILY #90 tabs 03/09/25 03/09/25 Rx tirzepatide (weight loss) 12.5 12.5 mg (0.5 mL) SUBCUT QWEEK #2 mL 03/09/25 03/09/25 Rx mg/0.5 mL subcutaneous pen injector triamterene 37.5 1 cap PO DAILY #90 caps 03/09/25 03/09/25 Rx mg-hydrochlorothiazide 25 mg capsule valacyclovir 1 gram tablet 1,000 mg PO DAILY #90 tabs 03/09/25 03/09/25 Rx Allergies Allergy/AdvReac Type Severity Reaction Status Date / Time No Known Drug Allergies Allergy Verified 04/11/25 17:24 Exam Vital Signs (past 8 hours): - 04/11/25 17:21 04/11/25 17:32 04/11/25 18:00 Temperature Pulse Rate 88 87 Respiratory Rate 16 25 H Blood Pressure 111/64 106/64 Pulse Oximetry 98 100 Oxygen Delivery Method Room Air 04/11/25 18:00 04/11/25 18:21 04/11/25 18:21 Temperature Pulse Rate 82 85 Respiratory Rate 24 23 Blood Pressure 119/61 Pulse Oximetry 100 100 Oxygen Delivery Method 04/11/25 18:30 04/11/25 18:30 04/11/25 19:00 Temperature Pulse Rate 81 75 Respiratory Rate 20 20 Blood Pressure 115/68 Pulse Oximetry 99 100 Oxygen Delivery Method 04/11/25 19:00 04/11/25 19:14 04/11/25 19:19 Temperature 98.5 F Pulse Rate 78 77 Respiratory Rate 16 23 Blood Pressure 109/58 L 109/58 L Pulse Oximetry 100 99 Oxygen Delivery Method 04/11/25 19:19 04/11/25 19:20 04/11/25 19:20 Temperature Pulse Rate 79 Respiratory Rate 34 H Blood Pressure 93/55 L 97/55 L Pulse Oximetry 99 Oxygen Delivery Method 04/11/25 19:21 04/11/25 19:21 04/11/25 19:25 Temperature Pulse Rate 81 81 Respiratory Rate 26 H Blood Pressure 109/53 L Pulse Oximetry 99 96 Oxygen Delivery Method 04/11/25 19:25 04/11/25 19:30 04/11/25 19:30 Temperature Pulse Rate 84 Respiratory Rate 21 Blood Pressure 119/76 118/55 L Pulse Oximetry 95 Oxygen Delivery Method 04/11/25 19:35 04/11/25 19:35 04/11/25 19:38 Temperature 98 F Pulse Rate 78 78 Respiratory Rate 17 16 Blood Pressure 91/54 L 95/52 L Pulse Oximetry 95 98 Oxygen Delivery Method 04/11/25 19:40 04/11/25 19:40 04/11/25 19:45 Temperature Pulse Rate 81 Respiratory Rate 21 Blood Pressure 95/52 L 95/51 L Pulse Oximetry 99 Oxygen Delivery Method 04/11/25 19:45 04/11/25 19:50 04/11/25 19:50 Temperature Pulse Rate 75 75 Respiratory Rate 16 20 Blood Pressure 101/57 L Pulse Oximetry 98 99 Oxygen Delivery Method 04/11/25 19:55 04/11/25 19:55 04/11/25 20:00 Temperature Pulse Rate 78 81 Respiratory Rate 24 Blood Pressure 105/54 L Pulse Oximetry 92 Oxygen Delivery Method 04/11/25 20:01 04/11/25 20:01 04/11/25 20:05 Temperature Pulse Rate 81 85 Respiratory Rate 23 24 Blood Pressure 128/58 L Pulse Oximetry 96 98 Oxygen Delivery Method 04/11/25 20:05 04/11/25 20:11 04/11/25 20:11 Temperature Pulse Rate 85 Respiratory Rate 20 Blood Pressure 132/60 132/75 Pulse Oximetry 99 Oxygen Delivery Method 04/11/25 20:15 04/11/25 20:15 04/11/25 20:20 Temperature Pulse Rate 91 H 84 Respiratory Rate 20 16 Blood Pressure 125/73 125/73 Pulse Oximetry 94 98 Oxygen Delivery Method 04/11/25 20:21 04/11/25 20:21 Temperature Pulse Rate 83 Respiratory Rate 21 Blood Pressure 110/54 L Pulse Oximetry 98 Oxygen Delivery Method Oxygen Delivery Method Room Air COUNT INCLUDES THE [facility] Medical History Dyspareunia Elevated coronary artery calcium score HLD (hyperlipidemia) Class 2 obesity Environmental and seasonal allergies Osteoarthritis Sleep apnea (~1999) Fractures (~2007) Ankle pain (~2011) Mumps Measles Chicken pox (~1957) Retinal vein occlusion (~2020) Surgical History History of arthroplasty of left knee Anesthesia History of hernia repair (~2011) History of right hip replacement (~2019) History of left hip replacement (~2016) History of ankle surgery (~2014) History of hysterectomy (~2006) History of cholecystectomy (~2006) History of foot surgery (~2007) Family History Father Prostate cancer History of heart disease Mother Cancer Hypertension Bleeding ulcer Grandfather Stroke Grandfather Cirrhosis Grandmother History of heart disease Social History household members: spouse Tobacco & Substance Use alcohol intake: current Assessment & Plan Time-Based Coding :: [TOTAL MINUTES] spent with patient and on the chart (including review of chart, obtaining history, exam, reviewing outside data, placing orders, documenting exam and treatment plan, and counseling patient) on [DATE]. PROFEE Charge Codes Inpatient or Observation consultation: 41035
--- NOTE | 2025-04-11 20:34 | PM.OP.1 ---
Operative Date/Time/Diagnoses Date of procedure: 04/11/25 Time of procedure: 20:00 Pre-op diagnosis: Prosthetic left hip dislocation Post-op diagnosis: same Procedure & Clinicians Procedure: Closed reduction of left hip (48071) Same procedure(s) as scheduled: Yes Surgeon: Roberto Eid Assisted?: No Anesthesia Type: Sedation Operative Notes Findings: Anterior dislocation Applied: none Estimated Blood Loss (mL): 0 Procedure in detail: A time-out procedure was performed prior to the closed reduction. The patient had previously been consented. Dislocation images were readily accessible and demonstrated a anterior dislocation with the hip in a position of extreme external rotation. This aligned with her position on examination where she was holding the hip in a shortened and significantly externally rotated position. Propofol anesthesia was utilized. Following administration an onset of sedation pulled her in in-line traction towards the foot of the bed and internal rotation. Initially this resulted in her being pulled down the bed and so 2 assistance were placed at the head of the bed to provide counter traction. I attempted again and did not feel a palpable clunk. On my 3rd attempt I placed the hip in slight flexion and manipulated the hip through the knee joint. When I did this was able to feel a palpable clunk in the hip came into more neutral rotation. I manipulated the hip to test this to ensure that the reduction had appropriately occurred and noted that she now had a normal range of motion with intact hip flexion external rotation and internal rotation which was smooth through all of those planes. With the hip now in the reduced position, which was confirmed with fluoroscopy, I did note that she still had a left shorter than right limb length discrepancy. She was awoken from the propofol sedation and I provided counseling regarding follow up which is described in detail in my consult note. Complications: none
--- NOTE | 2025-04-11 20:38 | DI.CT.S_ITS ---
PROCEDURE: CT PEL WO CON INDICATIONS: Left hip dislocation TECHNIQUE: Noncontrast 3 mm axial sections acquired through the bony pelvis, with coronal and sagittal reformatting. COMPARISON: None. FINDINGS: Image quality: Excellent. Bones: Changes of bilateral total hip arthroplasties. The left femoral head is appropriately seated in the acetabular cup. No displaced liner. Moderate degenerative proliferation of the pubic symphysis. Mild joint space narrowing small peripheral osteophytosis of the bilateral sacroiliac joints. No sacral fracture. No fracture. Mild, grade 1, degenerative anterolisthesis of L4 on L5. Soft tissues: The pelvic viscera is unremarkable. Post hysterectomy. Mild diffuse atrophy and fatty infiltration of the hip girdle musculature, within the expected change for age. No focal soft tissue collection. IMPRESSION: Changes of bilateral total hip prosthesis with reduction of the left femoral component. No periprosthetic fracture. Dictated by: Alexis Gaxiola M.D. on 04/11/2025 at 21:02 Approved by: Alexis Gaxiola M.D. on 04/11/2025 at 21:05
== END 2025-04-11 21:48 | disposition home or self-care (01) ==
PROVIDERS: Emergency Provider Family Medicine; PCP Nurse Practitioner Family
DX: S73.005A Unspecified dislocation of left hip, initial encounter (principal); Z96.641 Presence of right artificial hip joint; Z96.642 Presence of left artificial hip joint
CPT/HCPCS: 27265; 36415; 72192; 73501; 73502; 99222; 99284; J1171; J1885; J2405; J2704

== ENCOUNTER 2025-04-21 15:09 | Emergency (ER) | payer MEDICARE, OTHER, SELFPAY ==
[2025-04-21] VITALS (28 sets, daily range): BP systolic 96–161; BP diastolic 44–83; PULSE 73–86; RESP 15–18; TEMP 37.2; O2SAT 97–100; BMI 24.1
--- NOTE | 2025-04-21 15:44 | DI.RAD.S_ITS ---
PROCEDURE: XR HIP W PEL IF DONE LT 2V INDICATIONS: injury TECHNIQUE: AP pelvis with lateral view(s) of the left hip(s). COMPARISON: [facility], CT, CT PEL WO CON, 04/11/2025, 20:46. [facility], CR, XR HIP LT 1V, 04/11/2025, 20:07. [facility], CR, XR HIP W PEL LT 2V, 04/11/2025, 17:50. FINDINGS: Bones: Left hip arthroplasty hardware is seen, with the prosthetic femoral head dislocated superiorly in relation to the prosthetic acetabular cup. No associated fracture can be seen. The visualized right arthroplasty hardware is within normal limits. Soft tissues: The visualized bowel gas pattern is normal. No suspicious soft tissue calcifications. IMPRESSION: Left prosthetic hip dislocation. Dictated by: Kike Haile M.D. on 04/21/2025 at 15:48 Approved by: Kike Haile M.D. on 04/21/2025 at 15:49
--- NOTE | 2025-04-21 15:57 | ED.LOWEXIN ---
HPI - Extremity Injury (Lower) General Chief Complaint: Extremity Injury, Lower Stated Complaint: Hip dislocation Time Seen by Provider: 04/21/25 15:18 Source: patient and EMS Mode of arrival: EMS History of Present Illness HPI Narrative: 69-year-old female presents with left hip dislocation seen recently by [facility] with PT referral and podiatry was at a book club coming out when she stepped and twisted in the wrong direction brought in via EMS. This is the 2nd hip dislocation in 10 days. Other than what is stated 14 point review systems negative Related Data Previous Rx's ?Medication ?Instructions ?Recorded triamcinolone acetonide 0.025 % 1 applic topical BID #15 grams 04/22/24 topical ointment phenazopyridine 200 mg tablet 200 mg PO TID PRN pain #6 tabs 08/13/24 (Pyridium) amlodipine 10 mg tablet 10 mg PO DAILY #90 tabs 03/09/25 estradiol 10 mcg vaginal tablet See Rx Instructions .Route 03/09/25 (Vagifem) .COMPLEX #36 tabs olmesartan 40 mg tablet 40 mg PO DAILY #90 tabs 03/09/25 rosuvastatin 10 mg tablet 10 mg PO DAILY #90 tabs 03/09/25 tirzepatide (weight loss) 12.5 12.5 mg (0.5 mL) SUBCUT QWEEK #2 mL 03/09/25 mg/0.5 mL subcutaneous pen injector triamterene 37.5 1 cap PO DAILY #90 caps 03/09/25 mg-hydrochlorothiazide 25 mg capsule valacyclovir 1 gram tablet 1,000 mg PO DAILY #90 tabs 03/09/25 Allergies Allergy/AdvReac Type Severity Reaction Status Date / Time No Known Drug Allergies Allergy Verified 04/14/25 09:49 Review of Systems Review of Systems ROS Unobtainable: All systems reviewed & are unremarkable except as noted in HPI and below Patient History Medical History (Updated 04/21/25 @ 17:38 by Percy Castellanos DO) Dyspareunia Elevated coronary artery calcium score HLD (hyperlipidemia) Class 2 obesity Environmental and seasonal allergies Osteoarthritis Sleep apnea (~1999) Fractures (~2007) Ankle pain (~2011) Mumps Measles Chicken pox (~1957) Retinal vein occlusion (~2020) Surgical History (Updated 04/14/25 @ 11:35 by Roberto Eid MD) Status post total hip replacement, left History of arthroplasty of left knee Anesthesia History of hernia repair (~2011) History of right hip replacement (~2019) History of left hip replacement (~2016) History of ankle surgery (~2014) History of hysterectomy (~2006) History of cholecystectomy (~2006) History of foot surgery (~2007) Family History Father Prostate cancer History of heart disease Mother Cancer Hypertension Bleeding ulcer Grandfather Stroke Grandfather Cirrhosis Grandmother History of heart disease Social History household members: spouse Smoking Status: Never smoker alcohol intake: current Smoking Status: Never smoker alcohol intake frequency: a few times a month Exam Narrative Exam Narrative: GENERAL: [69] year old patient appears stated age. Well-developed patient, in mild distress. HEAD: Atraumatic. Normocephalic. EYES: Pupils equal round and reactive. Extraocular motions intact. No scleral icterus. No injection or drainage. EXTREMITIES: No edema or joint tenderness. BACK: Nontender without deformity or crepitance. No flank tenderness. NEURO: AOx3. SKIN: No rash or erythema of visible areas Initial Vital Signs Initial Vital Signs: Vital Signs Pulse Rate 73 04/21/25 15:14 Course Orders Ordered: ED Orders 04/21/25 15:44 XR hip w pel LT 2V Stat 04/21/25 17:25 XR hip LT 1V Stat 04/21/25 17:38 Consult to [facility] Stat Discontinued Medications Hydromorphone HCl (Hydromorphone 1 Mg/Ml Syringe) 1 mg IV NOW ONE Stop: 04/21/25 15:58 Last Admin: 04/21/25 16:00 Dose: 1 mg Propofol (Propofol 200 Mg/20 Ml Vial) 100 mg IV NOW ONE Stop: 04/21/25 16:25 Vital Signs Vital signs: Vital Signs - 8 hr 04/21/25 15:14 04/21/25 15:15 04/21/25 15:15 Temperature Pulse Rate 73 80 Pulse Rate [Left Dorsalis Pedis] Respiratory Rate Blood Pressure 152/69 H Pulse Oximetry 100 Oxygen Delivery Method 04/21/25 15:18 04/21/25 15:25 04/21/25 15:30 Temperature 98.9 F Pulse Rate 84 Pulse Rate [Left Dorsalis Pedis] 81 Respiratory Rate 15 Blood Pressure 152/69 H 142/55 H Pulse Oximetry 97 Oxygen Delivery Method Room Air 04/21/25 15:30 04/21/25 16:00 04/21/25 16:00 Temperature Pulse Rate 80 83 Pulse Rate [Left Dorsalis Pedis] Respiratory Rate 17 Blood Pressure 138/64 Pulse Oximetry 98 98 Oxygen Delivery Method 04/21/25 16:30 04/21/25 16:39 04/21/25 16:39 Temperature Pulse Rate 84 79 Pulse Rate [Left Dorsalis Pedis] Respiratory Rate Blood Pressure 96/44 L Pulse Oximetry 100 100 Oxygen Delivery Method 04/21/25 16:45 04/21/25 16:45 04/21/25 17:37 Temperature Pulse Rate 78 76 Pulse Rate [Left Dorsalis Pedis] Respiratory Rate 16 Blood Pressure 122/58 L Pulse Oximetry 100 Oxygen Delivery Method MDM - Extremity Injury (Lower) Lab Data Labs: Point of Care Testing Test Results Negative MDM Narrative Medical decision making narrative: All labwork, vital signs, victims advocate clerk/specialist note, medication list, previous ER visits all reviewed. Pt given dilaudid and propofol for moderate sedation and Dr. Naveed austin has reduced hip with post reduction films confirming it is reduced. Patient tolerated procedure with no complication. Differential dx fracture, dislocation, contusion. Airway assessed prior to start of procedure? [Y] Procedural Sedation Time of Procedure: [520pm] Consent Signed: [Y] ASA Class: [II] Mallampati Airway Classification: [II] Time Out Performed: [Y] Indication: [L hip dislocation] Preparation: [RT, athletic monitor, Amalia Castellanos and Naveed in room, 2 RNs at bedside] Bedside and IV Secured: [Y] Fentanyl Dose (mcg): [] IV Propofol Dose (mg): [80] ED Sedation Level: [moderate] Patient Tolerated Procedure: [well] Complications: [None] Discharge Plan Departure Patient Disposition: Home Clinical Impression: Dislocation, hip closed Qualifiers: Encounter type: initial encounter Laterality: left Qualified Code(s): S73.005A - Unspecified dislocation of left hip, initial encounter Instructions: DI for Hip Dislocation -- Adult Activity Restrictions/Additional Instructions: Return with new or worsening symptoms. Please follow up with call office for appointment. Prescriptions: No Action phenazopyridine [Pyridium] 200 mg tablet 200 mg PO TID PRN (Reason: pain) Qty: 6 0RF triamcinolone acetonide 0.025 % ointment 1 applic topical BID Qty: 15 0RF triamterene-hydrochlorothiazid 37.5-25 mg capsule 1 cap PO DAILY Qty: 90 3RF tirzepatide (weight loss) 12.5 mg/0.5 mL pen injector 12.5 mg SUBCUT QWEEK Qty: 2 6RF rosuvastatin 10 mg tablet 10 mg PO DAILY Qty: 90 3RF Rx Instructions: Take 1 tab at bedtime daily, with Vitamin D3. olmesartan 40 mg tablet 40 mg PO DAILY Qty: 90 3RF Rx Instructions: Take 1 tab daily, Goal for BP under 130/80, preferably 120/80 amlodipine 10 mg tablet 10 mg PO DAILY Qty: 90 3RF estradiol [Vagifem] 10 mcg tablet See Rx Instructions .ROUTE .COMPLEX Qty: 36 3RF Rx Instructions: Insert vaginally at bedtime daily x14 days then 2x/week thereafter; valacyclovir 1 gram tablet 1,000 mg PO DAILY Qty: 90 3RF Referrals: Tatyana Holly, [facility] [Primary Care Provider, Family Practice] Stand Alone Forms: Patient Portal/API
--- NOTE | 2025-04-21 17:25 | DI.RAD.S_ITS ---
PROCEDURE: XR HIP LT 1V INDICATIONS: post reduction TECHNIQUE: 1 views of the hip were acquired. COMPARISON: [facility], CR, XR HIP W PEL LT 2V, 04/21/2025, 15:50. FINDINGS: Bones: No fractures or dislocations. No suspicious bony lesions. The visualized pelvic ring appears intact. Interval reduction of left hip arthroplasty with good anatomic alignment. Right hip arthroplasty. Hardware is intact without hardware fracture or periprosthetic lucency to suggest loosening. Alignment is stable. Soft tissues: No suspicious soft tissue calcifications or masses. IMPRESSION: Interval reduction with good anatomic alignment. No visualized fracture. Dictated by: Cristiane Powell M.D. on 04/21/2025 at 17:47 Approved by: Cristiane Powell M.D. on 04/21/2025 at 17:47
--- NOTE | 2025-04-21 17:39 | PC.NURSE ---
80mg propofol administered at 1725, Dr Nicola SHERIFF reduced hip successfully at 1726 with no complications. Confirmed by XR at bedside.
--- NOTE | 2025-04-21 17:45 | PM.CN.IH.1 ---
History of Present Illness Consult details Date Patient Seen: 04/21/25 Time Patient Seen: 17:45 Chief complaint: Hip dislocation Reason for consult: Recurrent left hip dislocation Requesting provider: Pecry Castellanos Narrative: 69-year-old female who presents to the ER for complaint of recurrent left hip dislocation. She had a total hip arthroplasty performed previously through an anterior approach and recently had a dislocation of the prosthesis a week or so ago that was reduced. She twisted on the leg earlier today and had immediate onset of pain and feeling like the hip had dislocated again. She was seen in the emergency room and x-rays confirmed a left hip dislocation. Orthopedic consult was requested. She reports discomfort in the left hip only. Meds Home Medications and Allergies Home Medications ?Medication ?Instructions ?Recorded ?Confirmed ?Type triamcinolone acetonide 0.025 % 1 applic topical BID #15 grams 04/22/24 04/14/25 Rx topical ointment phenazopyridine 200 mg tablet 200 mg PO TID PRN pain #6 tabs 08/13/24 04/14/25 Rx (Pyridium) amlodipine 10 mg tablet 10 mg PO DAILY #90 tabs 03/09/25 04/14/25 Rx estradiol 10 mcg vaginal tablet See Rx Instructions .Route 03/09/25 04/14/25 Rx (Vagifem) .COMPLEX #36 tabs olmesartan 40 mg tablet 40 mg PO DAILY #90 tabs 03/09/25 04/14/25 Rx rosuvastatin 10 mg tablet 10 mg PO DAILY #90 tabs 03/09/25 04/14/25 Rx tirzepatide (weight loss) 12.5 12.5 mg (0.5 mL) SUBCUT QWEEK #2 mL 03/09/25 04/14/25 Rx mg/0.5 mL subcutaneous pen injector triamterene 37.5 1 cap PO DAILY #90 caps 03/09/25 04/14/25 Rx mg-hydrochlorothiazide 25 mg capsule valacyclovir 1 gram tablet 1,000 mg PO DAILY #90 tabs 03/09/25 04/14/25 Rx Allergies Allergy/AdvReac Type Severity Reaction Status Date / Time No Known Drug Allergies Allergy Verified 04/14/25 09:49 Exam Vital Signs (past 8 hours): - 04/21/25 15:14 04/21/25 15:15 04/21/25 15:15 Temperature Pulse Rate 73 80 Pulse Rate [Left Dorsalis Pedis] Respiratory Rate Blood Pressure 152/69 H Pulse Oximetry 100 Oxygen Delivery Method 04/21/25 15:18 04/21/25 15:25 04/21/25 15:30 Temperature 98.9 F Pulse Rate 84 Pulse Rate [Left Dorsalis Pedis] 81 Respiratory Rate 15 Blood Pressure 152/69 H 142/55 H Pulse Oximetry 97 Oxygen Delivery Method Room Air 04/21/25 15:30 04/21/25 16:00 04/21/25 16:00 Temperature Pulse Rate 80 83 Pulse Rate [Left Dorsalis Pedis] Respiratory Rate 17 Blood Pressure 138/64 Pulse Oximetry 98 98 Oxygen Delivery Method 04/21/25 16:30 04/21/25 16:39 04/21/25 16:39 Temperature Pulse Rate 84 79 Pulse Rate [Left Dorsalis Pedis] Respiratory Rate Blood Pressure 96/44 L Pulse Oximetry 100 100 Oxygen Delivery Method 04/21/25 16:45 04/21/25 16:45 04/21/25 17:37 Temperature Pulse Rate 78 76 Pulse Rate [Left Dorsalis Pedis] Respiratory Rate 16 Blood Pressure 122/58 L Pulse Oximetry 100 Oxygen Delivery Method Oxygen Delivery Method Room Air Narrative Exam Narrative: Left lower extremity is in a shortened and externally rotated position. She has tenderness around the hip. Distal motor and sensory exams are intact. Objective Imaging Pelvis and left hip: My impression: AP of the pelvis along with AP and lateral views of the left hip performed April 21, 2025 were personally assessed. There is presence of a left total hip arthroplasty which is currently dislocated superiorly and anteriorly. There is also a right hip arthroplasty which is in good position and reduced. [facility] Medical History (Updated 04/21/25 @ 17:38 by Percy Castellanos DO) Dyspareunia Elevated coronary artery calcium score HLD (hyperlipidemia) Class 2 obesity Environmental and seasonal allergies Osteoarthritis Sleep apnea (~1999) Fractures (~2007) Ankle pain (~2011) Mumps Measles Chicken pox (~1957) Retinal vein occlusion (~2020) Surgical History (Updated 04/14/25 @ 11:35 by Roberto Eid MD) Status post total hip replacement, left History of arthroplasty of left knee Anesthesia History of hernia repair (~2011) History of right hip replacement (~2019) History of left hip replacement (~2017) History of ankle surgery (~2014) History of hysterectomy (~2006) History of cholecystectomy (~2006) History of foot surgery (~2007) Family History Father Prostate cancer History of heart disease Mother Cancer Hypertension Bleeding ulcer Grandfather Stroke Grandfather Cirrhosis Grandmother History of heart disease Social History household members: spouse Tobacco & Substance Use Smoking Status: Never smoker alcohol intake: current Assessment & Plan Assessment & Plan narrative: Left hip prosthetic dislocation. Diagnosis and treatment options were discussed with the patient. It was recommended that we reduce the hip today in the emergency room. She was in agreement. Consent was obtained by the emergency room staff. The patient was sedated using propofol by the emergency room staff and respiratory therapy was present to help manage airway concerns. Once the patient was adequately sedated, standard reduction of the hip was performed with a palpable clunk. Postreduction x-rays were performed and demonstrate concentric reduction of the prosthesis. Recommend use of an abduction pillow and reinforced hip precautions. She should also follow up with Dr. Eid within the next 1-2 weeks. Time-Based Coding :: [TOTAL MINUTES] spent with patient and on the chart (including review of chart, obtaining history, exam, reviewing outside data, placing orders, documenting exam and treatment plan, and counseling patient) on [DATE]. PROFEE Charge Codes Inpatient or Observation consultation: 72446
== END 2025-04-21 18:35 | disposition home or self-care (01) ==
PROVIDERS: Emergency Provider Family Medicine; PCP Nurse Practitioner Family
DX: S73.005A Unspecified dislocation of left hip, initial encounter (principal); Z96.643 Presence of artificial hip joint, bilateral
CPT/HCPCS: 27265; 73501; 73502; 96374; 99284; J1171; J2704